=== PATIENT | male | born 1995 | race Caucasian/White ===

== ENCOUNTER 2018-01-18 00:28 | Emergency (ER) | payer BC ==
[~2018-01-18] VITALS: Ht 167.6 cm; Wt 72.6 kg
[2018-01-18] MEDS ORDERED: MEPERIDINE HCL (25 MG/ML) 1ML VIAL IM ONE (02:45)
[2018-01-18] MEDS ORDERED: LET TOPICAL SOLN 5 ML TOP ONE (03:15)
[2018-01-18 03:35] VITALS: BP 137/89
== END 2018-01-18 04:28 | disposition home or self-care (01) ==
LOC: ER 00:28
DX: M22.3X1 Other derangements of patella, right knee (principal)
CPT/HCPCS: 73562; 73610; 96372; 99284; J2175; J3490